=== PATIENT | female | born 1960 | race Caucasian/White ===

== ENCOUNTER → 2017-10-28 | Outpatient (CLI) | payer BC ==
--- NOTE | 2017-11-02 11:17 | RAD ---
DATE: 10/28/2017 EXAM: MAMMO RAFAELA SCREENING BILATERAL HISTORY: Asymptomatic screening mammogram COMPARISON: Prior mammogram from 10/27/2016, 10/04/2015, 09/21/2014 This study was interpreted with the benefit of Computerized Aided Detection (CAD). The breast parenchyma shows scattered fibroglandular densities. Breast parenchyma level B. FINDINGS: Bilateral CC and MLO views of the breasts were performed. 3-D tomosynthesis of each breast was performed in CC and MLO projections. Right breast: There are no suspicious microcalcifications, masses or areas of architectural distortion. Left breast: There are no suspicious microcalcifications, masses or areas of architectural distortion. Findings are stable from prior mammogram. IMPRESSION: Negative bilateral mammogram. BI-RADS CATEGORY: 1 NEGATIVE RECOMMENDED FOLLOW-UP: 12M 12 MONTH FOLLOW-UP PQRS compliance statement: Patient information was entered into a reminder system with a target due date 10/28/2018 for the next mammogram. Mammography is a sensitive method for finding small breast cancers, but it does not detect them all and is not a substitute for careful clinical examination. A negative mammogram does not negate a clinically suspicious finding and should not result in delay in biopsying a clinically suspicious abnormality. "Our facility is accredited by the [employer] Mammography [employer]."
== END | disposition home or self-care (01) ==
LOC: MAMMO 13:04
PROVIDERS: ATTEND Family Medicine
DX: Z12.31 Encounter for screening mammogram for malignant neoplasm of breast (principal)
CPT/HCPCS: 77063; 77067

== ENCOUNTER 2017-12-08 23:34 | Emergency (ER) | payer BC ==
[~2017-12-08] VITALS: Ht 162.6 cm; Wt 86.1 kg
[2017-12-08 23:34] VITALS: BP 116/61
--- NOTE | 2017-12-08 23:38 | ED.ADGEN ---
Adult General Chief Complaint Chief Complaint ".. I got my contact stuck in my eye... It been in a couple hours.. I was rubbing my eye... and it feels like it still in there.. the tele doctor... told me to go to the ED..." HPI HPI Patient is a 57 year old female who presents with above hx and complaints. Soft contact loss in Rt eye after rubbing it. Pt. has no obvious contact in the cornea area. Upper lid was everted and no obvious contact. Irrigated eye approximately 500 mL under pressure with normal saline no finding of soft Contact. Patient Does Have a Slight Abrasion to the Anterior Cornea. We Will Discharge Patient with Cipro eyedrops and to follow-up with ophthalmology in the morning. Patient does have a history of dry eyes. Review of Systems Review of Systems Constitutional: Denies fever or chills [] Eyes: Denies change in visual acuity, redness, or eye pain [] HENT: Denies nasal congestion or sore throat [] Respiratory: Denies cough or shortness of breath [] Cardiovascular: No additional information not addressed in HPI [] GI: Denies abdominal pain, nausea, vomiting, bloody stools or diarrhea [] : Denies dysuria or hematuria [] Musculoskeletal: Denies back pain or joint pain [] Integument: Denies rash or skin lesions [] Neurologic: Denies headache, focal weakness or sensory changes [] Endocrine: Denies polyuria or polydipsia [] All other systems were reviewed and found to be within normal limits, except as documented in this note. Family History Family History Noncontributory Current Medications Current Medications Current Medications Medications (Trade) Dose Ordered Sig/Maximo Start Time Stop Time Status Last Admin Dose Admin Ciprofloxacin 25 drop STK-MED ONCE 12/09/17 00:15 12/09/17 00:22 DC Eye Irrigation Solution 30 ml STK-MED ONCE 12/09/17 00:14 12/09/17 00:22 DC Tetracaine HCl (Tetracaine) 40 drop STK-MED ONCE 12/08/17 23:48 12/09/17 00:22 DC Allergies Allergies Allergies Coded Allergies Type Severity Reaction Last Updated Verified No Known Drug Allergies 12/08/17 No Physical Exam Physical Exam Constitutional: Well developed, well nourished, no acute distress, non-toxic appearance. [] HENT: Normocephalic, atraumatic, bilateral external ears normal, oropharynx moist, no oral exudates, nose normal. [] Eyes: PERRLA, EOMI, conjunctiva normal, no discharge. []Small abrasion to right cornea. No foreign body found. Neck: Normal range of motion, no tenderness, supple, no stridor. [] Cardiovascular:Heart rate regular rhythm, no murmur [] Lungs & Thorax: Bilateral breath sounds clear to auscultation [] [] Neurologic: Alert and oriented X 3, normal motor function, normal sensory function, no focal deficits noted. [] Psychologic: Affect anxious, judgement normal, mood normal. [] EKG EKG [] Radiology/Procedures Radiology/Procedures [] Course & Med Decision Making Course & Med Decision Making Pertinent Labs and Imaging studies reviewed. (See chart for details). Follow- up with ophthalmology in morning. Use Cipro eyedrops 2 drops 4 times a day. [] Final Impression Final Impression 1. Corneal Abrasion[] 2. History of soft contact lost in right eye Problems: Dragon Disclaimer Dragon Disclaimer This electronic medical record was generated, in whole or in part, using a voice recognition dictation system. CARLINE BAPTISTE MD Dec 08, 2017 23:37
[2017-12-08] MEDS ORDERED: TETRACAINE 0.5% OPHTH SOLUTION 4ML BOTTLE. ONE (23:48)
[2017-12-08] MEDS: TETRACAINE 0.5% OPHTH SOLUTION 4ML BOTTLE. OU ONE (23:51)
[2017-12-09] MEDS ORDERED: EYE-STREAM OPTH SOLUTION 30 ML BOTTLE. ONE (00:14)
[2017-12-09] MEDS ORDERED: CIPROFLOXACIN 0.3% OPHTH SOLUTION 2.5ML BOTTLE. ONE (00:15)
[2017-12-09] MEDS: CIPROFLOXACIN 0.3% OPHTH SOLUTION 2.5ML BOTTLE. OD ONE (00:17)
[2017-12-09] MEDS: EYE-STREAM OPTH SOLUTION 30 ML BOTTLE. OD ONE (00:17)
== END 2017-12-09 00:22 | disposition home or self-care (01) ==
LOC: ER 23:34
DX: S05.01XA Injury of conjunctiva and corneal abrasion without foreign body, right eye, initial encounter (principal); X58.XXXA Exposure to other specified factors, initial encounter; Y93.89 Activity, other specified; Y99.8 Other external cause status; Y92.89 Other specified places as the place of occurrence of the external cause
CPT/HCPCS: 99284

== ENCOUNTER → 2018-11-09 | Outpatient (CLI) | payer BC ==
--- NOTE | 2018-11-09 16:16 | RAD ---
DATE: 11/09/2018 EXAM: MAMMO RAFAELA SCREENING BILATERAL HISTORY: Routine screening COMPARISON: 10/28/2017 This study was interpreted with the benefit of Computerized Aided Detection (CAD). Breast Density: SCATTERED The breast parenchyma shows scattered fibroglandular densities. Breast parenchyma level B. FINDINGS: 2-D and 3-D tomosynthesis imaging was performed in CC and MLO projections. No new or enlarging breast densities are seen. No suspicious microcalcifications are evident. IMPRESSION: Stable mammograms without evidence of malignancy. BI-RADS CATEGORY: 1 NEGATIVE RECOMMENDED FOLLOW-UP: 12M 12 MONTH FOLLOW-UP PQRS compliance statement: Patient information was entered into a reminder system with a target due date for the next mammogram. Mammography is a sensitive method for finding small breast cancers, but it does not detect them all and is not a substitute for careful clinical examination. A negative mammogram does not negate a clinically suspicious finding and should not result in delay in biopsying a clinically suspicious abnormality. "Our facility is accredited by the [employer]."
== END | disposition home or self-care (01) ==
LOC: MAMMO 15:04
PROVIDERS: ATTEND Family Medicine
DX: Z12.31 Encounter for screening mammogram for malignant neoplasm of breast (principal)
CPT/HCPCS: 77063; 77067